=== PATIENT | female | born 1990 | race African-American/Black ===

== ENCOUNTER 2016-09-14 01:49 | Emergency (ER) | payer MEDICAID ==
[~2016-09-14] VITALS: Ht 170.2 cm; Wt 61.7 kg
[2016-09-14 01:55] VITALS: BP 135/98
== END 2016-09-14 02:36 | disposition home or self-care (01) ==
LOC: ED 01:49
DX: K04.7 Periapical abscess without sinus (principal); Z88.0 Allergy status to penicillin
CPT/HCPCS: J1885

== ENCOUNTER 2016-12-19 15:58 | Emergency (ER) | payer MEDICAID ==
[~2016-12-19] VITALS: Ht 170.2 cm; Wt 59.9 kg
[2016-12-19 16:31] VITALS: BP 140/88
== END 2016-12-19 18:38 | disposition home or self-care (01) ==
LOC: ED 15:58
DX: R51 Headache (principal); M79.1 Myalgia; R50.9 Fever, unspecified; Z88.0 Allergy status to penicillin